=== PATIENT | female | born 1955 | race Hispanic/Latino ===

== ENCOUNTER 2017-01-16 07:15 | Day surgery (SDC) | payer OTHER ==
[2017-01-16 07:45] VITALS: BMI 25.2
[2017-01-16] MEDS ORDERED: Midazolam 2 MG/2 ML VIAL ONE (07:55)
[2017-01-16] MEDS ORDERED: Propofol 10 mg/ml Inj (20 ML) ONE (07:56)
[2017-01-16] MEDS ORDERED: Lactated Ringer's 1,000 ML IV SCH (09:30)
[2017-01-16 11:38] VITALS: BP 125/71; PULSE 57; RESP 12; O2SAT 99
[2017-01-16 11:45] VITALS: TEMP 97.8
== END 2017-01-16 11:20 | disposition home or self-care (01) ==
LOC: C.ENDO 07:15
PROVIDERS: ATTEND Internal Medicine Gastroenterology
DX: Z12.11 Encounter for screening for malignant neoplasm of colon (principal); D12.2 Benign neoplasm of ascending colon; K63.5 Polyp of colon; K21.0 Gastro-esophageal reflux disease with esophagitis; K57.30 Diverticulosis of large intestine without perforation or abscess without bleeding; K64.0 First degree hemorrhoids; K64.1 Second degree hemorrhoids
CPT/HCPCS: 43239; 45381; 45385; 88305; J2250; J2704; J7120

== ENCOUNTER 2017-02-08 09:13 | Emergency (ER) | payer OTHER ==
[2017-02-08 09:13] VITALS: BMI 25.2
[2017-02-08 09:28] VITALS: BP 130/88; PULSE 78; RESP 18; TEMP 98.3; O2SAT 96
--- NOTE | 2017-02-08 09:35 | C.PDOC ---
History Of Present Illness 61 y/o female presents to the ED s/p accidental needle stick @ 0900 today while at work. Pt was wiping down a table and stuck tip of right 3rd finger on exposed open 20g needle lying on the table. Pt states needle was uncapped , not attached to a syringe, didn't notice obvious body fluid on needle tip. Pt states she immediately squeezed blood out of her wound and washed it. Pt has no other complaints at this time. SP ACCID NEEDLE STICK @ 0900. ONSET WHILE @ WORK, WIPING DOWN A TABLE AND STUCK TIP OF R 3 FINGER ON EXPOSED OPEN 20G NEEDLE LYING ON TABLE. PS TABLE WAS UNCAPPED, WAS NOT ATTACHED TO A SYRINGE, NOTICED NO OBVIOUS BODY FLUID ON NEEDLE TIP. PS IMMEDIATELY SQUEEZED BLOOD OUT OF HER WOUND AND WASHED IT. EXAM SKIN HEALING FINGER STICK INJURY TIP OF R 3 FINGER. NO REDNESS, SWELL, DC EXT AROM WO DIFF MDM PT ADVISED OF RISKS/BENEFITS OF HAART. DOES NOT WISH HIV MEDS @ THIS TIME. Time Seen by Provider: 02/08/17 09:32 Chief Complaint (Nursing): Needle Stick History Per: Patient History/Exam Limitations: no limitations Onset/Duration Of Symptoms: Mins Severity: Mild Recent travel outside of the [place]: No Past Medical History Reviewed: Historical Data, Nursing Documentation, Vital Signs Vital Signs: Last Vital Signs Temp 98.3 F 02/08/17 09:20 Pulse 78 02/08/17 09:20 Resp 18 02/08/17 09:45 BP 130/88 02/08/17 09:20 Pulse Ox 96 02/08/17 09:36 - Medical History PMH: Gastritis, Hypercholesterolemia, Hyperthyroidism, Hypothyroidism Surgical History: Endoscopy Family History: States: Unknown Family Hx - Social History Hx Tobacco Use: No Hx Alcohol Use: No Hx Substance Use: No - Immunization History Hx Tetanus Toxoid Vaccination: Yes Hx Influenza Vaccination: Yes Hx Pneumococcal Vaccination: No Review Of Systems Except As Marked, All Systems Reviewed And Found Negative. Skin: Positive for: Other (Needle stick right 3rd finger) Physical Exam - Physical Exam Appears: Non-toxic, No Acute Distress Skin: Warm, Dry, Other (Healing finger stick injury to tip of right 3rd finger. No redness, swelling or discharge. ) Head: Atraumatic, Normacephalic Extremity: Normal ROM (AROM without difficulty) Extremity: Bilateral: Atraumatic Neurological/Psych: Oriented x3, Normal Motor, Normal Sensation ED Course And Treatment O2 Sat by Pulse Oximetry: 96 (on room air) Pulse Ox Interpretation: Normal Medical Decision Making Medical Decision Making: Patient advised of risks/benefits of HAART. Patient does not wish HIV medications at this time. Disposition Counseled Patient/Family Regarding: Diagnosis, Need For Followup - Disposition Referrals: [facility] [Provider Group] Disposition: HOME/ ROUTINE Disposition Time: 09:35 Condition: GOOD Instructions: Needle Stick Injuries (ED) Forms: Work Excuse - Clinical Impression Clinical Impression: Needle stick injury - Scribe Statement The provider has reviewed the documentation as recorded by the Abdifatah Partida Provider Attestation: All medical record entries made by the Tarunibbryant were at my direction and personally dictated by me. I have reviewed the chart and agree that the record accurately reflects my personal performance of the history, physical exam, medical decision making, and the department course for this patient. I have also personally directed, reviewed, and agree with the discharge instructions and disposition.
[2017-02-08] MEDS ORDERED: Tetanus/Diphtheria Toxoids 0.5 ml Syringe IM ONE (09:36)
== END 2017-02-08 09:45 | disposition home or self-care (01) ==
LOC: C.ER 09:13
DX: S61.232A Puncture wound without foreign body of right middle finger without damage to nail, initial encounter (principal); W46.1XXA Contact with contaminated hypodermic needle, initial encounter; Y93.89 Activity, other specified; Y92.230 Patient room in hospital as the place of occurrence of the external cause; Y99.0 Civilian activity done for income or pay

== ENCOUNTER 2017-03-18 05:40 | Emergency (ER) | payer OTHER ==
[2017-03-18 05:41] VITALS: BMI 25.2
--- NOTE | 2017-03-18 06:13 | C.PDOC ---
History Of Present Illness Patient is a 61 year old female who presents to the ER with a complaint of diarrhea and epigastric pain for the past 2 days. Patient states she has been taking imodium, however, symptoms persist. Denies fever, nausea and vomiting. Time Seen by Provider: 03/18/17 06:06 Chief Complaint (Nursing): Abdominal Pain History Per: Patient History/Exam Limitations: no limitations Onset/Duration Of Symptoms: Days (2) Current Symptoms Are (Timing): Still Present Location Of Pain/Discomfort: Epigastric Radiation Of Pain To:: None Quality Of Discomfort: Unable To Describe Associated Symptoms: Diarrhea. denies: Fever, Nausea, Vomiting Exacerbating Factors: None Alleviating Factors: None Recent travel outside of the [place]: No Abnormal Vaginal Bleeding: No Past Medical History Reviewed: Historical Data, Nursing Documentation, Vital Signs Vital Signs: Last Vital Signs Temp 98.3 F 03/18/17 05:50 Pulse 71 03/18/17 05:50 Resp 20 03/18/17 05:50 BP 150/93 H 03/18/17 05:50 Pulse Ox 99 03/18/17 06:33 - Medical History PMH: Gastritis, Hypercholesterolemia, Hyperthyroidism, Hypothyroidism Surgical History: Endoscopy Family History: States: Unknown Family Hx - Social History Hx Tobacco Use: No Hx Alcohol Use: No Hx Substance Use: No - Immunization History Hx Tetanus Toxoid Vaccination: Yes Hx Influenza Vaccination: Yes Hx Pneumococcal Vaccination: No Review Of Systems Constitutional: Negative for: Fever Gastrointestinal: Positive for: Abdominal Pain (Epigastric), Diarrhea. Negative for: Nausea, Vomiting Physical Exam - Physical Exam Appears: Well, Non-toxic Skin: Normal Color, Warm, Dry Head: Atraumatic, Normacephalic Oral Mucosa: Moist Chest: Symmetrical, No Tenderness Cardiovascular: Rhythm Regular, No Murmur Respiratory: Normal Breath Sounds, No Rales, No Rhonchi, No Wheezing Gastrointestinal/Abdominal: Soft, Tenderness (Epigastric, LLQ) Neurological/Psych: Oriented x3, Normal Speech, Normal Cognition ED Course And Treatment O2 Sat by Pulse Oximetry: 99 (Room air) Pulse Ox Interpretation: Normal Progress Note: CT abd/pel w/ PO contrast and blood work ordered. Protonix, zofran and IV fluids administered. Disposition - Disposition Disposition Time: 07:00 Condition: STABLE - Clinical Impression Clinical Impression: Abdominal pain, Nausea, Diarrhea - Scribe Statement The provider has reviewed the documentation as recorded by the Tarunibbryant Cuellar All medical record entries made by the Tarunibbryant were at my direction and personally dictated by me. I have reviewed the chart and agree that the record accurately reflects my personal performance of the history, physical exam, medical decision making, and the department course for this patient. I have also personally directed, reviewed, and agree with the discharge instructions and disposition. Physician Patient Turnover Patient Signed Over To: Jennifer Culp Handoff Comments: CT, labs are pending
[2017-03-18] MEDS ORDERED: Sodium Chloride 0.9% 1,000 ML IV STA (06:25)
[2017-03-18] MEDS ORDERED: Barium Sulfate Susp 2.1% w/v, 2.0% w/w 450 mL Bottle PO STA (06:26)
[2017-03-18] MEDS ORDERED: Sodium Chloride 0.9% 1,000 ML ONE (06:34)
[2017-03-18 06:43] LABS: BASO % 0.8 % (0.0-2.0); EOS # 0.1 K/uL (0.0-0.7); EOS % 2.6 % (0.0-4.0); HEMATOCRIT 36.9 % (34.0-47.0); LYMPH # 1.9 K/uL (1.0-4.3); LYMPH % 43.5 % (20.0-40.0); MEAN CELL VOLUME 89.3 fL (81.0-99.0); MEAN CORPUSCULAR HEMOGLOBIN 30.5 pg (27.0-31.0); MEAN CORPUSCULAR HGB CONC 34.2 g/dL (33.0-37.0); MEAN PLATELET VOLUME 7.9 fL (7.2-11.7); MONO # 0.3 K/uL (0.0-0.8); MONO % 7.6 % (0.0-10.0); RED CELL DISTRIBUTION WIDTH 13.5 % (11.5-14.5); WHITE BLOOD COUNT 4.3 K/uL (4.8-10.8)
[2017-03-18 06:52] LABS: CHLORIDE 100 mmol/L (98-107); POTASSIUM 3.8 mmol/L (3.6-5.2); SODIUM 138 mmol/L (132-148)
[2017-03-18 06:54] LABS: CARBON DIOXIDE 31 mmol/L (22-30); GFR AFRICAN-AMERICAN > 60
[2017-03-18 06:55] LABS: ALB/GLOB RATIO 1.3 (1.0-2.1); ALKALINE PHOSPHATASE 60 U/L (38-126); ALT/SGPT 20 U/L (9-52); AST/SGOT 33 U/L (14-36); BILIRUBIN,TOTAL 0.8 mg/dL (0.2-1.3); BLOOD UREA NITROGEN 11 mg/dL (7-17); CALCIUM 9.2 mg/dl (8.6-10.4); GLUCOSE,RANDOM 98 mg/dL (65-105); TOTAL PROTEIN 7.6 g/dL (6.3-8.3)
--- NOTE | 2017-03-18 09:27 | CT ---
PROCEDURE: CT Abdomen and Pelvis with contrast HISTORY: Stomach pain, weakness -fever and diarrhea. COMPARISON: 07/03/2013. CT abdomen and pelvis. TECHNIQUE: Oral contrast only. Radiation dose: Total exam DLP = 471.20 mGy-cm. This CT exam was performed using one or more of the following dose reduction techniques: Automated exposure control, adjustment of the mA and/or kV according to patient size, and/or use of iterative reconstruction technique. FINDINGS: LOWER THORAX: Unremarkable. LIVER: Unremarkable. No gross lesion or ductal dilatation. GALLBLADDER AND BILE DUCTS: Unremarkable. PANCREAS: Unremarkable. No gross lesion or ductal dilatation. SPLEEN: Unremarkable. ADRENALS: Unremarkable. No mass. KIDNEYS AND URETERS: Unremarkable. No hydronephrosis. No solid mass. Incidental finding(s): Simple cyst upper pole left kidney 2.3 cm. VASCULATURE: Unremarkable. No aortic aneurysm. BOWEL: Mild thickening of the wall of proximal small bowel consistent with enteritis/ ileitis. no evidence of mechanical bowel obstruction. Focal segmental thickening of the sigmoid colon without an acute inflammatory component of uncertain etiology or significance. APPENDIX: Normal appendix. PERITONEUM: Unremarkable. No free fluid. No free air. LYMPH NODES: Unremarkable. No enlarged lymph nodes. BLADDER: Unremarkable. REPRODUCTIVE: Unremarkable. BONES: No acute fracture. OTHER FINDINGS: None. IMPRESSION: Findings consistent with mild enteritis without mechanical obstruction. Focal thickening of the sigmoid colon without focal discrete abnormality or adjacent inflammatory process. Additional benign and/or incidental findings described above.
[2017-03-18 10:19] VITALS: TEMP 98.4
[2017-03-18 14:54] VITALS: BP 123/84; PULSE 78; RESP 16; O2SAT 98
== END 2017-03-18 14:52 | disposition home or self-care (01) ==
LOC: C.ER 05:40
DX: K52.9 Noninfective gastroenteritis and colitis, unspecified (principal); R10.13 Epigastric pain; R11.0 Nausea
CPT/HCPCS: 74176; 80053; 83690; 85025; 96361; 96374; 96375; 99284; C9113; J1885; J2405; J2765; J7040

== ENCOUNTER 2017-06-17 08:15 | Emergency (ER) | payer OTHER ==
[2017-06-17 08:15] VITALS: BMI 25.2
[2017-06-17] MEDS ORDERED: Sodium Chloride 0.9% 1,000 ML ONE (08:28)
[2017-06-17] MEDS ORDERED: Sodium Chloride 0.9% 1,000 ML IV ONE (08:29)
[2017-06-17 08:42] LABS: BASO # 0.1 K/uL (0.0-0.2); BASO % 0.5 % (0.0-2.0); EOS # 0.2 K/uL (0.0-0.7); EOS % 1.6 % (0.0-4.0); HEMATOCRIT 40.1 % (34.0-47.0); MEAN CORPUSCULAR HEMOGLOBIN 30.4 pg (27.0-31.0); MEAN CORPUSCULAR HGB CONC 33.2 g/dL (33.0-37.0); MONO # 0.6 K/uL (0.0-0.8); MONO % 4.6 % (0.0-10.0); NRBC % 0.1 % (0.0-2.0); RED CELL DISTRIBUTION WIDTH 13.1 % (11.5-14.5)
[2017-06-17 08:45] LABS: MEAN CELL VOLUME 91.4 fL (81.0-99.0); WHITE BLOOD COUNT 11.9 K/uL (4.8-10.8)
[2017-06-17] MEDS ORDERED: Aluminum Hydroxide/Magnesium Hydroxide Susp (30 mL) PO STA (08:53)
[2017-06-17] MEDS ORDERED: Belladonna-Phenobarbital PO STA (08:53)
[2017-06-17 08:55] LABS: CHLORIDE 102 mmol/L (98-107); SODIUM 142 mmol/L (132-148)
[2017-06-17 08:56] LABS: POTASSIUM 3.9 mmol/L (3.6-5.2)
[2017-06-17 08:58] LABS: ALB/GLOB RATIO 1.2 (1.0-2.1); ALKALINE PHOSPHATASE 86 U/L (38-126); ALT/SGPT 26 U/L (9-52); AST/SGOT 26 U/L (14-36); BILIRUBIN,TOTAL 0.7 mg/dL (0.2-1.3); BLOOD UREA NITROGEN 18 mg/dL (7-17); CALCIUM 9.9 mg/dl (8.6-10.4); CARBON DIOXIDE 24 mmol/L (22-30); GFR AFRICAN-AMERICAN > 60; GLUCOSE,RANDOM 120 mg/dL (65-105)
[2017-06-17] MEDS ORDERED: Belladonna-Phenobarbital ONE (09:14)
[2017-06-17] MEDS ORDERED: Aluminum Hydroxide/Magnesium Hydroxide Susp (30 mL) ONE (09:15)
--- NOTE | 2017-06-17 09:19 | RAD ---
HISTORY: epigastric pain COMPARISON: 09/06/2014 FINDINGS: LUNGS: No active pulmonary disease. PLEURA: No significant pleural effusion identified, no pneumothorax apparent. Small opacity at the left lung base is believed most consistent with a nipple shadow CARDIOVASCULAR: Normal. OSSEOUS STRUCTURES: Osteopenia. Lateral shoulder arthrosis. Thoracic spondylosis VISUALIZED UPPER ABDOMEN: Normal. OTHER FINDINGS: None. IMPRESSION: No active cardiopulmonary disease. No infiltrate
[2017-06-17 10:22] VITALS: RESP 18
--- NOTE | 2017-06-17 11:08 | C.PDOC ---
History Of Present Illness 61 y/o female, with past medical history of gastritis, presents to ED for evaluation of epigastric abdominal pain with multiple episodes of vomiting since this morning. Denies eating anything unusual. Otherwise, denies any fever , chills, diarrhea, blood in vomitus, change in appetite, chest pain, shortness of breath, or any other associated symptoms at this time. Chief Complaint (Nursing): Abdominal Pain History Per: Patient History/Exam Limitations: no limitations Onset/Duration Of Symptoms: Hrs, Sudden Onset Current Symptoms Are (Timing): Still Present Severity: Moderate Location Of Pain/Discomfort: Epigastric Radiation Of Pain To:: None Quality Of Discomfort: "Pain" Associated Symptoms: Nausea, Vomiting. denies: Diarrhea, Loss Of Appetite, Back Pain, Chest Pain, Constipation, Urinary Symptoms Exacerbating Factors: None Alleviating Factors: None Recent travel outside of the [place]: No Additional History Per: Patient Abnormal Vaginal Bleeding: No Past Medical History Reviewed: Historical Data, Nursing Documentation, Vital Signs Vital Signs: Last Vital Signs Temp 98.0 F 06/17/17 13:58 Pulse 64 06/17/17 13:58 Resp 18 06/17/17 13:58 BP 105/57 L 06/17/17 13:58 Pulse Ox 99 06/17/17 14:04 - Medical History PMH: Gastritis, Hypercholesterolemia, Hyperthyroidism, Hypothyroidism Denies: Chronic Kidney Disease Surgical History: Endoscopy Family History: States: Unknown Family Hx - Social History Hx Tobacco Use: No Hx Alcohol Use: No Hx Substance Use: No - Immunization History Hx Tetanus Toxoid Vaccination: Yes Hx Influenza Vaccination: Yes Hx Pneumococcal Vaccination: No Review Of Systems Except As Marked, All Systems Reviewed And Found Negative. Constitutional: Negative for: Fever, Chills Cardiovascular: Negative for: Chest Pain Respiratory: Negative for: Shortness of Breath Gastrointestinal: Positive for: Nausea, Vomiting, Abdominal Pain. Negative for : Diarrhea, Constipation, Hematemesis Genitourinary: Negative for: Dysuria, Frequency, Hematuria, Vaginal Discharge Musculoskeletal: Negative for: Back Pain Physical Exam - Physical Exam Appears: Non-toxic, No Acute Distress Skin: Normal Color, Warm, Dry Head: Atraumatic, Normacephalic Eye(s): bilateral: Normal Inspection Oral Mucosa: Moist Neck: Normal ROM, Supple Cardiovascular: Rhythm Regular, No Murmur Respiratory: Normal Breath Sounds, No Rales, No Rhonchi, No Wheezing Gastrointestinal/Abdominal: Bowel Sounds (normal), Soft, Tenderness (mild tenderness to epigastric and LUQ), No Guarding, No Rebound, Other (actively vomiting) Back: Normal Inspection, No CVA Tenderness Extremity: Bilateral: Atraumatic, Normal ROM Neurological/Psych: Oriented x3, Normal Speech, Normal Cognition ED Course And Treatment - Laboratory Results Result Diagrams: 06/17/17 08:35 06/17/17 08:35 ECG: Interpreted By Me, Viewed By Me ECG Rhythm: Sinus Rhythm ECG Interpretation: No Acute Changes Interpretation Of ECG: Normal axis, and normal intervals. Rate From EC (bpm) O2 Sat by Pulse Oximetry: 99 (on RA) Pulse Ox Interpretation: Normal Medical Decision Making Medical Decision Making: Plan: Blood work, UA, urine culture, CXR Patient was given , Lidocaine, Maalox, Pepcid, Zofran, and IV fluids. On re-evaluation, pt reports feeling better, no more vomiting. Vitals remain stable. Pt feels comfortable being discharged home. Patient will be discharged home with prescriptions and is instructed to follow up with PMD in 1-2 days. Disposition - Disposition Referrals: [facility], [Non-Staff] - Disposition: HOME/ ROUTINE Disposition Time: 12:00 Condition: IMPROVED Additional Instructions: Thank you for letting us take care of you today. Your provider was Dr. Wise. You were treated for gastritis. The emergency medical care you received today was directed at your acute symptoms. If you were prescribed any medication, please fill it and take as directed. It may take several days for your symptoms to resolve. Return to the Emergency Department if your symptoms worsen, do not improve, or if you have any other problems. Please contact your doctor or call one of the physicians/clinics you have been referred to that are listed on the Patient Visit Information form that is included in your discharge packet. Bring any paperwork you were given at discharge with you along with any medications you are taking to your follow up visit. Our treatment cannot replace ongoing medical care by a primary care provider (PCP) outside of the emergency department. Thank you for allowing the [facility] team to be part of your care today. Follow up with your primary doctor and your GI doctor in 2-3 days for re- evaluation and further management. Prescriptions: Cyclobenzaprine [Cyclobenzaprine HCl] 10 mg PO Q8 PRN #20 tab PRN Reason: Muscle Spasm Ranitidine HCl [Zantac] 150 mg PO BID #20 tablet Instructions: Gastritis (ED) Forms: [facility] (Urdu), Work Excuse - Clinical Impression Clinical Impression: Gastroesophageal reflux disease - Scribe Statement The provider has reviewed the documentation as recorded by the Tarunibe Tl Sellers All medical record entries made by the Tarunibbryant were at my direction and personally dictated by me. I have reviewed the chart and agree that the record accurately reflects my personal performance of the history, physical exam, medical decision making, and the department course for this patient. I have also personally directed, reviewed, and agree with the discharge instructions and disposition.
[2017-06-17 13:59] VITALS: BP 105/57; PULSE 64; TEMP 98
[2017-06-17 14:04] VITALS: O2SAT 99
--- NOTE | 2017-06-17 14:21 | CT ---
PROCEDURE: CT Abdomen and Pelvis without Oral or IV contrast. HISTORY: lower abdominal pain - ? colitis COMPARISON: CT abdomen and pelvis without IV contrast performed 03/18/17 TECHNIQUE: Contiguous axial images of the abdomen and pelvis. No oral or IV contrast administered. Coronal and Sagittal reformats generated and reviewed. Radiation dose: Total exam DLP = 419.80 mGy-cm. This CT exam was performed using one or more of the following dose reduction techniques: Automated exposure control, adjustment of the mA and/or kV according to patient size, and/or use of iterative reconstruction technique. FINDINGS: There is limited evaluation of the solid organs without the administration of IV contrast. LOWER THORAX: No visible consolidation, pleural effusion, or pneumothorax. LIVER: Unremarkable unenhanced appearance. GALLBLADDER AND BILE DUCTS: Unremarkable unenhanced appearance. PANCREAS: Unremarkable unenhanced appearance. SPLEEN: Unremarkable unenhanced appearance. ADRENALS: Unremarkable unenhanced appearance. KIDNEYS AND URETERS: No hydronephrosis or obstructing renal calculus. 2.5 cm low-density lesion within the left kidney, possibly cyst. BLADDER: The urinary bladder appears unremarkable. REPRODUCTIVE: Uterus is present. APPENDIX: Not visualized. No secondary signs of acute appendicitis. BOWEL: The stomach is nondistended. Lack of oral contrast limits evaluation for bowel pathology. The bowel loops appear within normal limits of caliber without evidence of intestinal obstruction. PERITONEUM: No significant free fluid. No definite free air. LYMPH NODES: No bulky lymphadenopathy identified. VASCULATURE: No aortic aneurysm. BONES: Degenerative changes. OTHER FINDINGS: None. IMPRESSION: 2.5 cm probable left renal cyst.
--- NOTE | 2017-06-18 20:31 | CARD ---
APPROVED REPORT EKG Measurement Heart [id number] CT 160P63 [id number] <Conclusion> Normal sinus rhythm Possible Left atrial enlargement Prolonged QT Abnormal ECG
== END 2017-06-17 14:51 | disposition home or self-care (01) ==
LOC: C.ER 08:15
DX: K21.9 Gastro-esophageal reflux disease without esophagitis (principal)
CPT/HCPCS: 71010; 74176; 80053; 83690; 84484; 85025; 87086; 93005; 96374; 96375; 99285; J2405; J7040

== ENCOUNTER 2017-07-23 08:32 | Emergency (ER) | payer OTHER ==
[2017-07-23 08:32] VITALS: BMI 25.2
[2017-07-23 08:45] VITALS: TEMP 97.6
[2017-07-23] MEDS ORDERED: Sodium Chloride 0.9% 1,000 ML IV ONE (08:59)
[2017-07-23] MEDS ORDERED: Alum-Mag Hydrox-Simethicone Susp (30 mL) PO STA (09:00)
--- NOTE | 2017-07-23 09:13 | C.PDOC ---
History Of Present Illness 61 year old female, with PMHx of gastritis, presents to ED for evaluation of epigastric abdominal pain associated with nausea and dizziness today. Patient was recently seen here for similar symptoms, had CT scan done which was negative. Patient reports being seen by Dr. Coto for follow up visit and has scheduled an appointment for MRI of the abdomen this week. Otherwise, denies any vomiting, diarrhea, back pain, urinary symptoms, chest pain, fever, or chills. Time Seen by Provider: 07/23/17 08:33 Chief Complaint (Nursing): Abdominal Pain History Per: Patient History/Exam Limitations: no limitations Onset/Duration Of Symptoms: Days Current Symptoms Are (Timing): Still Present Location Of Pain/Discomfort: Epigastric Radiation Of Pain To:: None Quality Of Discomfort: "Pain" Associated Symptoms: Nausea. denies: Vomiting, Diarrhea, Loss Of Appetite, Back Pain, Chest Pain, Constipation, Urinary Symptoms Exacerbating Factors: None Alleviating Factors: None Recent travel outside of the [place]: No Additional History Per: Patient Abnormal Vaginal Bleeding: No Past Medical History Reviewed: Historical Data, Nursing Documentation, Vital Signs Vital Signs: Last Vital Signs Temp 97.6 F 07/23/17 08:35 Pulse 81 07/23/17 11:41 Resp 14 07/23/17 11:41 BP 141/95 H 07/23/17 11:41 Pulse Ox 98 07/23/17 11:41 - Medical History PMH: Gastritis, Hypercholesterolemia, Hyperthyroidism, Hypothyroidism Surgical History: Endoscopy Family History: States: Unknown Family Hx - Social History Hx Tobacco Use: No Hx Alcohol Use: No Hx Substance Use: No - Immunization History Hx Tetanus Toxoid Vaccination: Yes Hx Influenza Vaccination: No Hx Pneumococcal Vaccination: No Review Of Systems Except As Marked, All Systems Reviewed And Found Negative. Constitutional: Negative for: Fever, Chills Cardiovascular: Negative for: Chest Pain Gastrointestinal: Positive for: Nausea, Abdominal Pain. Negative for: Vomiting , Diarrhea, Constipation Genitourinary: Negative for: Dysuria, Frequency, Hematuria Musculoskeletal: Negative for: Back Pain Neurological: Positive for: Dizziness. Negative for: Weakness, Numbness, Headache Physical Exam - Physical Exam Appears: Non-toxic, No Acute Distress Skin: Normal Color, Warm, Dry Head: Atraumatic, Normacephalic Eye(s): bilateral: Normal Inspection Oral Mucosa: Moist Neck: Supple Chest: Symmetrical Cardiovascular: Rhythm Regular, No Murmur Respiratory: Normal Breath Sounds, No Rales, No Rhonchi, No Wheezing Gastrointestinal/Abdominal: Soft, Tenderness (epigastric), No Guarding, No Rebound Back: No CVA Tenderness Extremity: Normal ROM, No Deformity Neurological/Psych: Oriented x3, Normal Speech ED Course And Treatment - Laboratory Results Result Diagrams: 07/23/17 09:31 07/23/17 09:31 Lab Interpretation: Normal ECG: Interpreted By Me ECG Rhythm: Sinus Rhythm Rate From EC O2 Sat by Pulse Oximetry: 95 (on RA) Pulse Ox Interpretation: Normal Progress Note: EKG, blood work, UA ordered and reviewed. Patient was given Maalox, Pepcid, and IV fluids. On re-evaluation feeling better, in no distress Reassessment Condition: Improved Medical Decision Making Medical Decision Making: On re-evaluation feeling better, scheduled for MRI and appointment with GI Oabdomen soft non-tender Disposition Counseled Patient/Family Regarding: Studies Performed, Diagnosis, Need For Followup, Rx Given - Disposition Referrals: Yun Coto MD [Staff Provider] - Disposition: HOME/ ROUTINE Disposition Time: 11:15 Condition: STABLE Additional Instructions: Follow up with Dr Coto Return to ED if any increase symptoms Prescriptions: Sucralfate [Carafate] 1 gm PO Q8 #120 ml Instructions: Gastritis (ED), Abdominal Pain (ED) Forms: [facility] (Nigerien), Work Excuse - POA Present On Arrival: None - Clinical Impression Clinical Impression: Abdominal pain, Gastritis - PA / [employer] / Resident Statement MD/DO has reviewed & agrees with the documentation as recorded. - Scribe Statement The provider has reviewed the documentation as recorded by the Abdifatah Sellers All medical record entries made by the Tarunibbryant were at my direction and personally dictated by me. I have reviewed the chart and agree that the record accurately reflects my personal performance of the history, physical exam, medical decision making, and the department course for this patient. I have also personally directed, reviewed, and agree with the discharge instructions and disposition.
[2017-07-23] MEDS ORDERED: Sodium Chloride 0.9% 1,000 ML ONE (09:18)
[2017-07-23] MEDS ORDERED: Alum-Mag Hydrox-Simethicone Susp (30 mL) ONE (09:18)
[2017-07-23 09:36] LABS: BASO % 0.7 % (0.0-2.0); EOS # 0.1 K/uL (0.0-0.7); EOS % 1.4 % (0.0-4.0); HEMATOCRIT 39.4 % (34.0-47.0); LYMPH # 2.1 K/uL (1.0-4.3); LYMPH % 40.6 % (20.0-40.0); MEAN CORPUSCULAR HEMOGLOBIN 31.3 pg (27.0-31.0); MEAN CORPUSCULAR HGB CONC 34.4 g/dL (33.0-37.0); MEAN PLATELET VOLUME 8.1 fL (7.2-11.7); MONO # 0.3 K/uL (0.0-0.8); NRBC % 0.2 % (0.0-2.0); RED CELL DISTRIBUTION WIDTH 13.1 % (11.5-14.5)
[2017-07-23 09:42] LABS: WHITE BLOOD COUNT 5.1 K/uL (4.8-10.8)
[2017-07-23 09:44] LABS: CHLORIDE 102 mmol/L (98-107); SODIUM 141 mmol/L (132-148)
[2017-07-23 09:45] LABS: POTASSIUM 4.8 mmol/L (3.6-5.2)
[2017-07-23 09:47] LABS: ALB/GLOB RATIO 1.1 (1.0-2.1); ALKALINE PHOSPHATASE 62 U/L (38-126); ALT/SGPT 33 U/L (9-52); AST/SGOT 38 U/L (14-36); BILIRUBIN,TOTAL 0.8 mg/dL (0.2-1.3); BLOOD UREA NITROGEN 16 mg/dL (7-17); CARBON DIOXIDE 24 mmol/L (22-30); GFR AFRICAN-AMERICAN > 60; GLUCOSE,RANDOM 89 mg/dL (65-105)
[2017-07-23 10:09] LABS: RBC URINE < 1 /hpf (0-3); URINE BILIRUBIN NEGATIVE (NEGATIVE); URINE BLOOD NEGATIVE (NEGATIVE); URINE COLOR Straw (YELLOW); URINE GLUCOSE (UA) NORMAL (Normal); URINE KETONE NEGATIVE (NEGATIVE); URINE LEUKOCYTE ESTERASE NEG Leu/uL (Negative); URINE PROTEIN NEGATIVE (NEGATIVE); URINE UROBILINOGEN NORMAL mg/dL (0.2-1.0); WBC URINE 1 /hpf (0-5)
[2017-07-23 11:42] VITALS: BP 141/95; PULSE 81; RESP 14
[2017-07-23 15:47] VITALS: O2SAT 95
--- NOTE | 2017-07-24 15:40 | CARD ---
APPROVED REPORT EKG Measurement Heart [id number] RI 170P83 [id number] <Conclusion> Normal sinus rhythm Possible Left atrial enlargement Borderline ECG
== END 2017-07-23 11:42 | disposition home or self-care (01) ==
LOC: C.ER 08:32
DX: K29.70 Gastritis, unspecified, without bleeding (principal)
CPT/HCPCS: 80053; 81001; 83690; 84484; 85025; 93005; 96361; 96374; 99285; J7040

== ENCOUNTER 2017-09-01 17:51 | Emergency (ER) | payer OTHER ==
[2017-09-01 17:51] VITALS: BMI 25.2
[2017-09-01] MEDS ORDERED: Belladonna-Phenobarbital PO STA (20:19)
[2017-09-01] MEDS ORDERED: Alum-Mag Hydrox-Simethicone Susp (30 mL) PO STA (20:19)
[2017-09-01 20:21] LABS: BASO % 0.5 % (0.0-2.0); EOS # 0.1 K/uL (0.0-0.7); EOS % 1.7 % (0.0-4.0); HEMATOCRIT 38.3 % (34.0-47.0); LYMPH # 2.6 K/uL (1.0-4.3); LYMPH % 38.2 % (20.0-40.0); MEAN CELL VOLUME 89.7 fL (81.0-99.0); MEAN CORPUSCULAR HEMOGLOBIN 29.9 pg (27.0-31.0); MEAN CORPUSCULAR HGB CONC 33.3 g/dL (33.0-37.0); MEAN PLATELET VOLUME 7.6 fL (7.2-11.7); MONO # 0.5 K/uL (0.0-0.8); MONO % 7.7 % (0.0-10.0); NRBC % 0.1 % (0.0-2.0); RED CELL DISTRIBUTION WIDTH 12.9 % (11.5-14.5); WHITE BLOOD COUNT 6.9 K/uL (4.8-10.8)
--- NOTE | 2017-09-01 20:24 | C.PDOC ---
History Of Present Illness 61 yr old female with PMHx of of chronic abdomen pain for the past 6 months, as per patient has "all test", presents to the ER with complaints of epigastric pain radiating to right side side of abdomen and right side of back. Patient also states her stool is cano color but has normal bowel movement for the past 2 weeks. Patient has been seen by PMD 2 times and prescribed with an unknown medication. Otherwise, patient denies fever, chills, chest pain, SOB, nausea, vomiting, diarrhea, weakness or numbness. Time Seen by Provider: 09/01/17 19:33 Chief Complaint (Nursing): Abdominal Pain History Per: Patient History/Exam Limitations: no limitations Onset/Duration Of Symptoms: Days, Gradual Radiation Of Pain To:: None Quality Of Discomfort: "Pain" Exacerbating Factors: Movement Alleviating Factors: None Past Medical History Reviewed: Historical Data, Nursing Documentation, Vital Signs Vital Signs: Last Vital Signs Temp 97.4 F L 09/02/17 00:03 Pulse 61 09/02/17 00:03 Resp 20 09/02/17 00:03 BP 132/84 09/02/17 00:03 Pulse Ox 98 09/02/17 00:03 - Medical History PMH: Gastritis, Hypercholesterolemia, Hyperthyroidism, Hypothyroidism Surgical History: Endoscopy Family History: States: No Known Family Hx - Social History Hx Tobacco Use: No Hx Alcohol Use: No Hx Substance Use: No - Immunization History Hx Tetanus Toxoid Vaccination: Yes Hx Influenza Vaccination: No Hx Pneumococcal Vaccination: No Review Of Systems Except As Marked, All Systems Reviewed And Found Negative. Constitutional: Negative for: Fever, Chills Cardiovascular: Negative for: Chest Pain Respiratory: Negative for: Shortness of Breath Gastrointestinal: Positive for: Abdominal Pain (Epigastric). Negative for: Nausea, Vomiting, Diarrhea Musculoskeletal: Positive for: Back Pain (Radiating pain to the right side) Neurological: Negative for: Weakness, Numbness Physical Exam - Physical Exam Appears: Non-toxic, No Acute Distress Skin: Warm, Dry, No Rash Head: Atraumatic, Normacephalic Oral Mucosa: Moist Cardiovascular: Rhythm Regular, No Murmur Respiratory: Normal Breath Sounds, No Rales, No Rhonchi, No Stridor, No Wheezing Gastrointestinal/Abdominal: Normal Exam, Soft, No Tenderness, No Guarding, No Rebound Extremity: Normal ROM, No Swelling Neurological/Psych: Oriented x3, Normal Speech, Normal Motor, Normal Sensation ED Course And Treatment - Laboratory Results Result Diagrams: 09/01/17 20:16 09/01/17 20:16 O2 Sat by Pulse Oximetry: 99 (RA) Pulse Ox Interpretation: Normal - Other Rad X-Ray - Obstructive Series X-Ray: Viewed By Me Medical Decision Making Medical Decision Making: PLAN: * US - Abdomen * X-Ray - Obstructive Series * CBC * CMP * Urinalysis * PO * Maalox PO * Viscous Lidocaine PO On re-exam, the patient reports improvement of symptoms. Lungs are CTA, heart is RRR, ambulatory in the ED with steady. Abdomen is soft, non-tender and the patient is tolerating PO well. Follow up with the medical doctor within 1-2 days. Return if worsened. Disposition - Disposition Referrals: [facility] at [facility] [Outside] Disposition: HOME/ ROUTINE Disposition Time: 23:21 Condition: GOOD Additional Instructions: Follow up with the medical doctor within 1-2 days. Return if worsened. Instructions: Acute Abdominal Pain (ED) Forms: [employer] (Pashto), Work Excuse - Clinical Impression Clinical Impression: Abdominal pain - PA / SEA CAPTAIN / Resident Statement MD/DO has reviewed & agrees with the documentation as recorded. - Scribe Statement The provider has reviewed the documentation as recorded by the Scribe Rocio Montana All medical record entries made by the Scribe were at my direction and personally dictated by me. I have reviewed the chart and agree that the record accurately reflects my personal performance of the history, physical exam, medical decision making, and the department course for this patient. I have also personally directed, reviewed, and agree with the discharge instructions and disposition.
[2017-09-01] MEDS ORDERED: Belladonna-Phenobarbital ONE (20:25)
[2017-09-01] MEDS ORDERED: Alum-Mag Hydrox-Simethicone Susp (30 mL) ONE (20:25)
[2017-09-01 20:26] LABS: RBC URINE < 1 /hpf (0-3); URINE BACTERIA RARE (<OCC); URINE BILIRUBIN NEGATIVE (NEGATIVE); URINE BLOOD 1+ (NEGATIVE); URINE COLOR Colorless (YELLOW); URINE GLUCOSE (UA) NORMAL (Normal); URINE KETONE NEGATIVE (NEGATIVE); URINE LEUKOCYTE ESTERASE NEG Leu/uL (Negative); URINE PROTEIN NEGATIVE (NEGATIVE); URINE UROBILINOGEN NORMAL mg/dL (0.2-1.0); WBC URINE 1 /hpf (0-5)
[2017-09-01 20:30] LABS: CHLORIDE 102 mmol/L (98-107); SODIUM 137 mmol/L (132-148)
[2017-09-01 20:31] LABS: POTASSIUM 3.8 mmol/L (3.6-5.2)
[2017-09-01 20:33] LABS: ALB/GLOB RATIO 1.1 (1.0-2.1); ALKALINE PHOSPHATASE 71 U/L (38-126); ALT/SGPT 42 U/L (9-52); AST/SGOT 31 U/L (14-36); BILIRUBIN,TOTAL 0.4 mg/dL (0.2-1.3); BLOOD UREA NITROGEN 13 mg/dL (7-17); CARBON DIOXIDE 27 mmol/L (22-30); GFR AFRICAN-AMERICAN > 60; GLUCOSE,RANDOM 85 mg/dL (65-105); TOTAL PROTEIN 8.4 g/dL (6.3-8.3)
[2017-09-01 20:34] LABS: CALCIUM 9.1 mg/dl (8.6-10.4)
--- NOTE | 2017-09-01 22:30 | US ---
EXAM: US Abdomen Limited, Right Upper Quadrant CLINICAL HISTORY: 61 years old, female; Pain; Abdominal pain; Epigastric; Additional info: Ruq abd pain TECHNIQUE: Real-time ultrasound of the right upper quadrant with image documentation. COMPARISON: No relevant prior studies available. FINDINGS: Liver: Unremarkable in size measuring 15 cm in longitudinal dimension. The contour is smooth and the echogenicity is increased suggesting diffuse fatty Infiltration. No intrahepatic bile duct dilation. Gallbladder: Distended, without sludge or stones. Common bile duct: No stones. Moderate dilatation measuring 13 mm. Pancreas: Visualization of the pancreas is limited by overlying bowel gas. Right kidney: Unremarkable echogenicity and size measuring 10.1 x 5.0 cm No obstructing stones. No solid mass. No hydronephrosis. IMPRESSION: Common bile duct dilatation to 13 mm. Gallbladder distention. Steatosis. Limited evaluation of the pancreas, secondary to overlying bowel gas.
[2017-09-02 00:05] VITALS: BP 132/84; PULSE 61; RESP 20; TEMP 97.4
--- NOTE | 2017-09-02 09:03 | RAD ---
PROCEDURE: Radiographs of the chest and abdomen (obstructive series) HISTORY: abd pain COMPARISON: No prior. TECHNIQUE: AP radiograph of the chest, with upright and supine radiographs of the abdomen. FINDINGS: CHEST: Lungs: Clear. Cardiovascular: Normal size heart. No pulmonary vascular congestion. Pleura: No pleural fluid. No pneumothorax. Other findings: None. ABDOMEN AND PELVIS: Bowel: Unremarkable bowel gas pattern. No evidence of mechanical obstruction. Free air: None. Bones: Osteitis pubis condensans. Mild lumbar spondylosis and mild inferior facet hypertrophic arthrosis. Probable concomitant mild rotary scoliosis lumbar spine Other findings: None. IMPRESSION: No infiltrate. . No evidence of mechanical bowel obstruction. Osteitis pubis condensans. Mild lumbar spondylosis and mild inferior facet hypertrophic arthrosis. Probable concomitant mild rotary scoliosis lumbar spine
[2017-09-03 06:28] VITALS: O2SAT 99
== END 2017-09-02 00:05 | disposition home or self-care (01) ==
LOC: C.ER 17:51
DX: R10.9 Unspecified abdominal pain (principal); E78.00 Pure hypercholesterolemia, unspecified
CPT/HCPCS: 36415; 74022; 76705; 80053; 81001; 83690; 85025; 96374; 99285; J1885

== ENCOUNTER 2017-11-10 12:34 | Emergency (ER) | payer OTHER ==
[2017-11-10 12:34] VITALS: BMI 25.2
[2017-11-10 12:53] VITALS: RESP 20; TEMP 97.3
[2017-11-10 15:38] VITALS: BP 138/90; PULSE 58; O2SAT 100
--- NOTE | 2017-11-10 16:11 | C.PDOC ---
Time Seen by Provider: 11/10/17 14:19 Chief Complaint (Nursing): Chest Pain Past Medical History Vital Signs: Last Vital Signs Temp 97.3 F L 11/10/17 12:50 Pulse 58 L 11/10/17 15:37 Resp 20 11/10/17 15:37 BP 138/90 11/10/17 15:37 Pulse Ox 100 11/10/17 15:37 - Medical History PMH: Gastritis, Hypercholesterolemia, Hyperthyroidism, Hypothyroidism Denies: Chronic Kidney Disease Surgical History: Endoscopy Family History: States: Unknown Family Hx - Social History Hx Tobacco Use: No Hx Alcohol Use: No Hx Substance Use: No - Immunization History Hx Tetanus Toxoid Vaccination: Yes Hx Influenza Vaccination: No Hx Pneumococcal Vaccination: No ED Course And Treatment O2 Sat by Pulse Oximetry: 100 Disposition - Disposition Referrals: [facility] at [facility] [Outside] Disposition: HOME/ ROUTINE Disposition Time: 16:09 Condition: GOOD Additional Instructions: Follow up with the medical doctor/clinic within 1-2 days without fail. Return if worsened. Prescriptions: Acetaminophen [Tylenol] 325 mg PO Q6 PRN #30 tab PRN Reason: Pain, Mild (1-3) Cyclobenzaprine [Cyclobenzaprine HCl] 10 mg PO BID #14 tab Ibuprofen [Motrin] 600 mg PO TID #21 tab Instructions: Rib Contusion (ED) - Clinical Impression Clinical Impression: Rib contusion
--- NOTE | 2017-11-10 16:37 | C.PDOC ---
History Of Present Illness 62-year-old female, presents to the emergency department with complaints of chest pain after she hurt herself while cleaning three days ago. 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 Patient notes taking Aleve at home with minimal relief. Denies any shortness of breath, nausea/vomiting, fevers or chills. Time Seen by Provider: 11/10/17 14:19 Chief Complaint (Nursing): Chest Pain History Per: Patient History/Exam Limitations: no limitations Onset/Duration Of Symptoms: Days Current Symptoms Are (Timing): Still Present Severity: Moderate Past Medical History Reviewed: Historical Data, Nursing Documentation, Vital Signs Vital Signs: Last Vital Signs Temp 97.3 F L 11/10/17 12:50 Pulse 58 L 11/10/17 15:37 Resp 20 11/10/17 15:37 BP 138/90 11/10/17 15:37 Pulse Ox 100 11/10/17 17:01 - Medical History PMH: Gastritis, Hypercholesterolemia, Hyperthyroidism, Hypothyroidism Surgical History: Endoscopy Family History: States: No Known Family Hx - Social History Hx Tobacco Use: No Hx Alcohol Use: No Hx Substance Use: No - Immunization History Hx Tetanus Toxoid Vaccination: Yes Hx Influenza Vaccination: No Hx Pneumococcal Vaccination: No Review Of Systems Constitutional: Negative for: Fever, Chills Cardiovascular: Positive for: Chest Pain Respiratory: Negative for: Cough, Shortness of Breath Gastrointestinal: Negative for: Nausea, Vomiting Physical Exam - Physical Exam Appears: Non-toxic, No Acute Distress Skin: Warm, Dry, No Rash Head: Atraumatic, Normacephalic Eye(s): bilateral: Normal Inspection, PERRL Nose: Normal Oral Mucosa: Moist Lips: Normal Appearing Neck: Normal ROM Chest: Symmetrical, Tenderness (5, 6, 7) Cardiovascular: Rhythm Regular, No Murmur Respiratory: Normal Breath Sounds, No Accessory Muscle Use Extremity: Normal ROM Neurological/Psych: Oriented x3, Normal Speech ED Course And Treatment O2 Sat by Pulse Oximetry: 100 (on RA) Pulse Ox Interpretation: Normal Disposition - Disposition Referrals: [facility] [Outside] Disposition: HOME/ ROUTINE Disposition Time: 16:09 Condition: GOOD Additional Instructions: Follow up with the medical doctor/clinic within 1-2 days without fail. Return if worsened. Prescriptions: Acetaminophen [Tylenol] 325 mg PO Q6 PRN #30 tab PRN Reason: Pain, Mild (1-3) Cyclobenzaprine [Cyclobenzaprine HCl] 10 mg PO BID #14 tab Ibuprofen [Motrin] 600 mg PO TID #21 tab Instructions: Rib Contusion (ED) Forms: [employer] (Yoruba), Work Excuse - Clinical Impression Clinical Impression: Rib contusion - Scribe Statement The provider has reviewed the documentation as recorded by the Scribe (Judith Gomez) All medical record entries made by the Scribe were at my direction and personally dictated by me. I have reviewed the chart and agree that the record accurately reflects my personal performance of the history, physical exam, medical decision making, and the department course for this patient. I have also personally directed, reviewed, and agree with the discharge instructions and disposition.
--- NOTE | 2017-11-10 16:56 | RAD ---
PROCEDURE: Radiographs of the Chest and Right Ribs. HISTORY: rib injury COMPARISON: Chest x-ray performed 08/21/17 TECHNIQUE: Frontal radiograph of the chest and multiple oblique radiographs of the right ribs were obtained. FINDINGS: RIGHT RIBS: No appreciable displaced right rib fracture. LUNGS: No focal consolidation identified. Mild left basilar atelectasis. Biapical, right greater than left, pleural thickening. PLEURA: No significant pleural effusion. No definite pneumothorax. CARDIOVASCULAR: Borderline cardiomegaly. OTHER FINDINGS: None. IMPRESSION: Mild left basilar atelectasis. Biapical, right greater than left, pleural thickening. Borderline cardiomegaly. No appreciable displaced right rib fracture.
--- NOTE | 2017-11-11 23:10 | CARD ---
APPROVED REPORT EKG Measurement Heart [id number] <Conclusion> Normal sinus rhythm Possible Left atrial enlargement Low voltage QRS Borderline ECG
== END 2017-11-10 16:17 | disposition home or self-care (01) ==
LOC: C.ER 12:34
DX: S20.211A Contusion of right front wall of thorax, initial encounter (principal); W22.09XA Striking against other stationary object, initial encounter; Y92.239 Unspecified place in hospital as the place of occurrence of the external cause; Y99.0 Civilian activity done for income or pay
CPT/HCPCS: 71101; 93005; 96372; 99284; J1885

== ENCOUNTER 2018-01-24 11:59 | Emergency (ER) | payer OTHER ==
[2018-01-24 12:00] VITALS: BMI 25.2
[2018-01-24 12:07] VITALS: RESP 16
[2018-01-24] MEDS ORDERED: Sodium Chloride 0.9% 1,000 ML IV STA (12:45)
[2018-01-24] MEDS ORDERED: DiphenhydrAMINE 50 mg/ml Inj IVP STA (12:45)
--- NOTE | 2018-01-24 12:49 | C.PDOC ---
History Of Present Illness 62 y/o F c PMHx tinnitus p/w headache x 2-3 days. Patient describes headache has around forehead/behind eyes, associated with photophobia, nausea, worse when bending down. She went to ENT 3 days ago for worsening tinnitus and was started on Prednisone 60mg. She denies fever, stiff neck, trauma, numbness, weakness, speech difficulty. Patient has MRI scheduled this week. Time Seen by Provider: 01/24/18 12:29 Chief Complaint (Nursing): Dizziness/Lightheaded Past Medical History Vital Signs: Last Vital Signs Temp 97.4 F L 01/24/18 12:04 Pulse 74 01/24/18 12:04 Resp 16 01/24/18 12:04 BP 143/91 H 01/24/18 12:04 Pulse Ox 100 01/24/18 15:21 - Medical History PMH: Gastritis, Hyperthyroidism, Hypothyroidism Denies: Hypercholesterolemia ( PER PATIENT), Chronic Kidney Disease Surgical History: Endoscopy Family History: States: Unknown Family Hx - Social History Hx Tobacco Use: No Hx Alcohol Use: No Hx Substance Use: No - Immunization History Hx Tetanus Toxoid Vaccination: Yes Hx Influenza Vaccination: No Hx Pneumococcal Vaccination: No Review Of Systems Except As Marked, All Systems Reviewed And Found Negative. Constitutional: Negative for: Fever Respiratory: Negative for: Shortness of Breath Physical Exam - Physical Exam Additional Physical Exam Comments: Gen: NAD Head: NC/AT Eyes: PERRL ENT: MMM Neck: Supple Chest: No tenderness CV: Regular rate Lungs: CTA b/l Abd: Soft, NT Back: No CVA tenderness Skin: No rash Extremities: No swelling Neuro: Alert, CN II to XII intact, motor 5/5 x 4, sensation to light touch intact. ED Course And Treatment O2 Sat by Pulse Oximetry: 100 Medical Decision Making Medical Decision Making: Patient offered CT Head but given MRI scheduled this week, patient declined. Labs performed in this hospital earlier today as outpatient, viewable by me, CBC and CMP and TSH normal. Will treat symptomatically with antiemetics, fluids , and analgesia and reassess. Patient changed her mind and requested Head CT. FINDINGS: HEMORRHAGE: No intracranial hemorrhage. BRAIN: No mass effect or edema. Scattered focal lucencies in the subcortical and periventricular white matter suggestive for chronic microvascular ischemic change. VENTRICLES: Unremarkable. No hydrocephalus. CALVARIUM: Unremarkable. PARANASAL SINUSES: Unremarkable as visualized. No significant inflammatory changes. MASTOID AIR CELLS: Unremarkable as visualized. No inflammatory changes. OTHER FINDINGS: None. IMPRESSION: Chronic microvascular ischemic changes. No acute intracranial abnormality. If headache persists, consider further evaluation with MRI. Patient states headache is improved, continues to be lightheaded. Will discharge , continue medications, f/u PMD, return to ED for feeling of syncope, vomiting, vision change, or any other problem. Disposition - Disposition Disposition: HOME/ ROUTINE Disposition Time: 14:22 Condition: STABLE Prescriptions: Ondansetron ODT [Zofran ODT] 4 mg PO Q8 #12 odt Instructions: Headache, Adult (DC) Forms: [facility] (Estonian), Work Excuse - Clinical Impression Clinical Impression: Headache
[2018-01-24] MEDS ORDERED: Sodium Chloride 0.9% 1,000 ML ONE (12:54)
[2018-01-24] MEDS ORDERED: DiphenhydrAMINE 50 mg/ml Inj ONE (12:54)
--- NOTE | 2018-01-24 14:24 | CT ---
PROCEDURE: CT HEAD WITHOUT CONTRAST. HISTORY: headache, nausea COMPARISON: 10/14/2013. TECHNIQUE: Axial computed tomography images were obtained through the head/brain without intravenous contrast. Radiation dose: Total exam DLP = 815 mGy-cm. This CT exam was performed using one or more of the following dose reduction techniques: Automated exposure control, adjustment of the mA and/or kV according to patient size, and/or use of iterative reconstruction technique. FINDINGS: HEMORRHAGE: No intracranial hemorrhage. BRAIN: No mass effect or edema. Scattered focal lucencies in the subcortical and periventricular white matter suggestive for chronic microvascular ischemic change. VENTRICLES: Unremarkable. No hydrocephalus. CALVARIUM: Unremarkable. PARANASAL SINUSES: Unremarkable as visualized. No significant inflammatory changes. MASTOID AIR CELLS: Unremarkable as visualized. No inflammatory changes. OTHER FINDINGS: None. IMPRESSION: Chronic microvascular ischemic changes. No acute intracranial abnormality. If headache persists, consider further evaluation with MRI.
[2018-01-24 16:08] VITALS: BP 120/74; PULSE 56; TEMP 97.7; O2SAT 98
== END 2018-01-24 15:57 | disposition home or self-care (01) ==
LOC: C.ER 11:59
DX: R51 Headache (principal)
CPT/HCPCS: 70450; 82948; 96361; 96374; 96375; 99285; J1200; J1885; J2765; J7040

== ENCOUNTER 2018-11-11 11:11 | Emergency (ER) | payer OTHER ==
[2018-11-11 11:11] VITALS: BMI 25.2
[2018-11-11 11:30] VITALS: TEMP 97.6
[2018-11-11] MEDS ORDERED: Sodium Chloride 0.9% 1,000 ML IV ONE (11:33)
[2018-11-11] MEDS ORDERED: Sodium Chloride 0.9% 1,000 ML ONE (11:42)
--- NOTE | 2018-11-11 11:49 | C.PDOC ---
History Of Present Illness 63 y/o female, [employer] housekeeping employee, w/PMhx of gastritis, presents to the ER for evaluation of cramping epigastric abdominal pain. Patient states that the pain radiates to the right abdomen. Patient reports that she is supposed to take Bentyl x 3 daily. Patient notes that she took Bentyl with some relief after she began having the pain. However, she notes that she began having sudden onset of pain. She started feeling nauseous and hot. She felt like she was going to pass out because of the pain. She notes that she has history of negative colonoscopy. Denies having LOC, headache, dizziness, fever, chills, CP, SOB, vomiting, and recent travel. Time Seen by Provider: 11/11/18 11:14 Chief Complaint (Nursing): Abdominal Pain History Per: Patient History/Exam Limitations: no limitations Onset/Duration Of Symptoms: Hrs Current Symptoms Are (Timing): Still Present Severity: Moderate Past Medical History Reviewed: Historical Data, Nursing Documentation, Vital Signs Vital Signs: Last Vital Signs Temp 97.6 F 11/11/18 11:20 Pulse 60 11/11/18 11:20 Resp 15 11/11/18 11:20 BP 127/75 11/11/18 11:20 Pulse Ox 98 11/11/18 11:20 - Medical History PMH: Gastritis, Hyperthyroidism, Hypothyroidism Denies: Hypercholesterolemia ( PER PATIENT), Chronic Kidney Disease Surgical History: Endoscopy Family History: States: No Known Family Hx - Social History Hx Tobacco Use: No Hx Alcohol Use: No Hx Substance Use: No - Immunization History Hx Tetanus Toxoid Vaccination: Yes Hx Influenza Vaccination: No Hx Pneumococcal Vaccination: No Review Of Systems Except As Marked, All Systems Reviewed And Found Negative. Constitutional: Negative for: Fever, Chills Cardiovascular: Negative for: Chest Pain Respiratory: Negative for: Shortness of Breath Gastrointestinal: Positive for: Nausea, Abdominal Pain. Negative for: Vomiting, Diarrhea Genitourinary: Negative for: Dysuria, Hematuria Neurological: Negative for: Headache, Dizziness Physical Exam - Physical Exam Appears: Well, Non-toxic, No Acute Distress, Other (awake, alert, oriented x3) Skin: Normal Color, Warm, Dry Head: Atraumatic, Normacephalic Eye(s): bilateral: Normal Inspection Oral Mucosa: Dry Neck: Supple Chest: Symmetrical Cardiovascular: Rhythm Regular Respiratory: Normal Breath Sounds, No Rales, No Rhonchi, No Wheezing Gastrointestinal/Abdominal: Bowel Sounds (decreased bowel sounds), Tenderness (epigastric, RUQ, and suprapubic tenderness), No Guarding, No Rebound Back: No CVA Tenderness Neurological/Psych: Oriented x3, Normal Speech ED Course And Treatment - Laboratory Results Result Diagrams: 11/11/18 11:42 11/11/18 11:42 ECG: Interpreted By Me, Viewed By Me ECG Rhythm: Sinus Bradycardia Rate From EC O2 Sat by Pulse Oximetry: 98 (RA) Pulse Ox Interpretation: Normal - Other Rad CXR X-Ray: Viewed By Me, Read By Radiologist Interpretation: HISTORY: abd pain. COMPARISON: Chest x-ray performed 11/10/17. TECHNIQUE: Chest PA and lateral. FINDINGS: LUNGS: Biapical pleural thickening. No focal consolidation. Please note that chest x-ray has limited sensitivity for the detection of pulmonary masses. PLEURA: No significant pleural effusion identified. No definite pneumothorax . CARDIOVASCULAR: Heart size top normal. Ectatic aorta. Atherosclerotic calcifications. OSSEOUS STRUC TURES: Degenerative changes. VISUALIZED UPPER ABDOMEN: Unremarkable. OTHER FINDINGS: None. IMPRESSION: No focal consolidation. Biapical pleural thickening. Borderline cardiomegaly. Ectatic aorta. [id number] X-Ray: Viewed By Me, Read By Radiologist Interpretation: Date of service: 11/11/2018. PROCEDURE: Radiographs of the chest and abdomen (obstructive series). HISTORY: abd pain. COMPARISON: None available. TECHNIQUE: AP radiograph of the chest, with upright and supine radiographs of the abdomen. FINDINGS: CHEST: Heart size appears within normal limits. Ectatic aorta. Atherosclerotic calcifications. Biapical pleural thickening. No focal consolidation, significant pleural effusion, or definite pneumothorax. Please note that chest x-ray has limited sensitivity for the detection of pulmonary masses. ABDOMEN AND PELVIS: Nonspecific bowel gas pattern. Moderate constipation. No definite free air. Radiopaque foreign bodies project over the right hip, likely external artifact. No acute osseous abnormality is detected. IMPRESSION: Moderate constipation. Radiopaque foreign bodies project over the right hip, likely external artifact. Medical Decision Making Medical Decision Making: Plan: --Labs --UA --CXR --Abd Obs. Series --IV Fluids Updates: 14:20 I discussed work up results with patient. Patient states that she is taking Bentyl x1 per day , however, her GI Dr.Alexi instructed her to take Bentyl x3 per day. I instructed patient to take Bentyl as instructed by . Patient has been discharged and instructed to follow up with . Disposition Counseled Patient/Family Regarding: Studies Performed, Diagnosis, Need For Followup - Disposition Referrals: Sher Truong MD [Staff Provider] - Disposition: HOME/ ROUTINE Disposition Time: 14:22 Condition: STABLE Additional Instructions: SOILA GAMBOA, thank you for letting us take care of you today. Your provider was Tomeka Whitlock MD and you were treated for ABD PAIN AND NEAR SYNCOPE. The emergency medical care you received today was directed at your acute symptoms. Take all of your medication as directed. It may take several days for your symptoms to resolve. Return to the Emergency Department if your symptoms worsen, do not improve, or if you have any other problems. Please contact your doctor for a follow up appointment in 1-2days. Bring any paperwork you were given at discharge with you along with any medications you are taking to your follow up visit. Our treatment cannot replace ongoing medical care by a primary care provider outside of the emergency department. Thank you for allowing the [facility] team to be part of your care today. If you had an X-Ray or CT scan: A Radiologist will review the ED reading if any change in treatment is needed we will contact you. If you had a blood, urine, or wound culture: It will take several days for the results, if any change in treatment is needed we will contact you. If you had an STI test: It will take 48 hours for the results. Please call after 1 week if you have not heard back. Instructions: Constipation, Adult (DC), Acute Abdomen (Belly Pain), Adult (DC) Forms: General Discharge Instructions, [employer] (Belarusian), Work Excuse - POA Present On Arrival: None - Clinical Impression Clinical Impression: Constipation, Abdominal pain - Scribe Statement The provider has reviewed the documentation as recorded by the Abdifatah Perdue Provider Attestation: All medical record entries made by the Scribe were at my direction and personally dictated by me. I have reviewed the chart and agree that the record accurately reflects my personal performance of the history, physical exam, medical decision making, and the department course for this patient. I have also personally directed, reviewed, and agree with the discharge instructions and disposition.
[2018-11-11 11:50] LABS: BASO % 0.4 % (0.0-2.0); EOS # 0.1 K/uL (0.0-0.7); EOS % 1.5 % (0.0-4.0); HEMOGLOBIN 12.7 g/dL (11.0-16.0); MEAN CORPUSCULAR HEMOGLOBIN 30.2 pg (27.0-31.0); MEAN CORPUSCULAR HGB CONC 32.8 g/dL (33.0-37.0); MONO # 0.3 K/uL (0.0-0.8); MONO % 5.8 % (0.0-10.0); NEUT % 55.3 % (50.0-75.0); RBC 4.19 Mil/uL (3.80-5.20); RED CELL DISTRIBUTION WIDTH 13.2 % (11.5-14.5); WHITE BLOOD COUNT 5.4 K/uL (4.8-10.8)
[2018-11-11 11:53] LABS: MEAN CELL VOLUME 92.1 fL (81.0-99.0)
[2018-11-11 12:05] LABS: ALB/GLOB RATIO 1.6 (1.0-2.1); ALBUMIN 4.7 g/dL (3.5-5.0); ALT/SGPT 19 U/L (9-52); AST/SGOT 39 U/L (14-36); BLOOD UREA NITROGEN 21 mg/dL (7-17); CALCIUM 9.4 mg/dl (8.6-10.4); GFR NON-AFRICAN AMERICAN > 60; LIPASE 121 U/L (23-300)
[2018-11-11 13:07] LABS: SQUAMOUS EPITHIAL 1 /hpf (0-5); URINE BACTERIA RARE (<OCC); URINE BILIRUBIN NEGATIVE (NEGATIVE); URINE BLOOD NEGATIVE (NEGATIVE); URINE CLARITY Clear (Clear); URINE COLOR Yellow (YELLOW); URINE GLUCOSE (UA) NORMAL (Normal); URINE LEUKOCYTE ESTERASE NEG Leu/uL (Negative); URINE PROTEIN NEGATIVE (NEGATIVE); URINE UROBILINOGEN NORMAL mg/dL (0.2-1.0)
--- NOTE | 2018-11-11 13:17 | RAD ---
HISTORY: abd pain COMPARISON: Chest x-ray performed 11/10/17 TECHNIQUE: Chest PA and lateral FINDINGS: LUNGS: Biapical pleural thickening. No focal consolidation. Please note that chest x-ray has limited sensitivity for the detection of pulmonary masses. PLEURA: No significant pleural effusion identified. No definite pneumothorax . CARDIOVASCULAR: Heart size top normal. Ectatic aorta. Atherosclerotic calcifications. OSSEOUS STRUCTURES: Degenerative changes. VISUALIZED UPPER ABDOMEN: Unremarkable. OTHER FINDINGS: None. IMPRESSION: No focal consolidation. Biapical pleural thickening. Borderline cardiomegaly. Ectatic aorta.
--- NOTE | 2018-11-11 13:48 | RAD ---
Date of service: 11/11/2018 PROCEDURE: Radiographs of the chest and abdomen (obstructive series) HISTORY: abd pain COMPARISON: None available. TECHNIQUE: AP radiograph of the chest, with upright and supine radiographs of the abdomen. FINDINGS: CHEST: Heart size appears within normal limits. Ectatic aorta. Atherosclerotic calcifications. Biapical pleural thickening. No focal consolidation, significant pleural effusion, or definite pneumothorax. Please note that chest x-ray has limited sensitivity for the detection of pulmonary masses. ABDOMEN AND PELVIS: Nonspecific bowel gas pattern. Moderate constipation. No definite free air. Radiopaque foreign bodies project over the right hip, likely external artifact. No acute osseous abnormality is detected. IMPRESSION: Moderate constipation. Radiopaque foreign bodies project over the right hip, likely external artifact.
[2018-11-11 14:29] VITALS: BP 121/77; PULSE 65; RESP 16
[2018-11-11 14:49] VITALS: O2SAT 98
--- NOTE | 2018-11-12 11:27 | CARD ---
APPROVED REPORT Date of service: 11/11/2018 EKG Measurement Heart [id number] <Conclusion> Sinus bradycardia Otherwise normal ECG
== END 2018-11-11 14:32 | disposition home or self-care (01) ==
LOC: C.ER 11:11
DX: K59.00 Constipation, unspecified (principal); R10.13 Epigastric pain
CPT/HCPCS: 71046; 74022; 80053; 81001; 82948; 83690; 84484; 85025; 93005; 96360; 99285; J7030

== ENCOUNTER 2018-11-20 08:13 | Outpatient (CLI) | payer OTHER | END 2018-11-20 08:14 | disposition home or self-care (01) | LOC: C.RADH 08:13 ==

== ENCOUNTER 2019-01-08 09:07 | Outpatient (CLI) | payer OTHER | END 2019-01-08 09:08 | disposition home or self-care (01) | LOC: C.MRIC 09:08 | DX: M25.511 Pain in right shoulder (principal) ==